=== PATIENT | female | born 1990 | race Caucasian/White ===

== ENCOUNTER 2018-03-25 11:00 | Emergency (ER) | payer SELFPAY ==
[2018-03-25 11:18] VITALS: BP 127/87; PULSE 115; RESP 20; TEMP 99.9; O2SAT 96
--- NOTE | 2018-03-25 11:47 | C.PDOC ---
History Of Present Illness 27 y/o female presents to the ED complaining of sore throat, bodyaches, and subjective fever, ongoing since yesterday. Denies any cough, difficulty breathing, vomiting, or diarrhea. Patient denies taking any medication prior to arrival. Time Seen by Provider: 03/25/18 11:32 Chief Complaint (Nursing): Flu-like Symptoms History Per: Patient History/Exam Limitations: no limitations Onset/Duration Of Symptoms: Days (x2) Current Symptoms Are (Timing): Still Present Location Of Pain: Throat, Diffuse Myalgias Past Medical History Reviewed: Historical Data, Nursing Documentation, Vital Signs Vital Signs: Last Vital Signs Temp 99.9 F H 03/25/18 11:04 Pulse 115 H 03/25/18 11:04 Resp 20 03/25/18 11:04 BP 127/87 03/25/18 11:04 Pulse Ox 96 03/25/18 11:04 - Medical History PMH: No Chronic Diseases Surgical History: No Surg Hx Family History: States: No Known Family Hx - Social History Hx Alcohol Use: Yes Hx Substance Use: No - Immunization History Hx Tetanus Toxoid Vaccination: No Hx Influenza Vaccination: No Hx Pneumococcal Vaccination: No Review Of Systems Constitutional: Positive for: Fever (subjective) ENT: Positive for: Throat Pain Respiratory: Negative for: Cough, Shortness of Breath, Wheezing Gastrointestinal: Negative for: Vomiting, Diarrhea Musculoskeletal: Positive for: Other (Bodyaches) Skin: Negative for: Rash Physical Exam - Physical Exam Appears: Non-toxic, No Acute Distress Skin: Warm, Dry Head: Atraumatic, Normacephalic Eye(s): bilateral: Normal Inspection, PERRL, EOMI Oral Mucosa: Moist Throat: Erythema (Pharynx appears erythematous and swollen), No Exudate, No Drooling, Other (Uvula midline) Neck: Normal ROM, Supple Lymphatic: No Adenopathy Cardiovascular: Rhythm Regular, No Murmur Respiratory: Normal Breath Sounds, No Accessory Muscle Use, Other (NARD) Pulses: Left Radial: Normal, Right Radial: Normal Neurological/Psych: Oriented x3, Normal Speech ED Course And Treatment O2 Sat by Pulse Oximetry: 96 (RA) Pulse Ox Interpretation: Normal Medical Decision Making Medical Decision Making: Impression: Pharyngitis Plan: Counseled patient regarding likely diagnosis of viral throat infection. Plan is to d/c home with prescriptions for motrin and decadron. Advised patient to follow up with PMD or the clinic for further evaluation. Disposition Counseled Patient/Family Regarding: Diagnosis, Need For Followup, Rx Given - Disposition Referrals: [facility] [Outside] [facility] [Outside] Disposition: HOME/ ROUTINE Disposition Time: 11:48 Condition: IMPROVED Prescriptions: Dexamethasone [Decadron] 12 mg PO ONCE #2 tablet Ibuprofen [Motrin] 600 mg PO Q6 #30 tab Instructions: Sore Throat, Adult (DC) Forms: [employer] ([place]), Work Excuse - POA Present On Arrival: None - Clinical Impression Clinical Impression: Pharyngitis, acute - Scribe Statement The provider has reviewed the documentation as recorded by the Sam Stewart Provider Attestation: All medical record entries made by the Sam were at my direction and personally dictated by me. I have reviewed the chart and agree that the record accurately reflects my personal performance of the history, physical exam, medical decision making, and the department course for this patient. I have also personally directed, reviewed, and agree with the discharge instructions and disposition.
== END 2018-03-25 11:58 | disposition home or self-care (01) ==
LOC: C.ER 11:00
DX: J02.9 Acute pharyngitis, unspecified (principal)